=== PATIENT | female | born 1990 | race Caucasian/White ===

== ENCOUNTER 2021-09-09 16:55 | Inpatient (IN) | payer OTHER ==
[~2021-09-09] VITALS: Ht 152.4 cm; Wt 79.8 kg
[2021-09-09] MEDS ORDERED: SYNTHROID125 MCG PO (18:02)
[2021-09-09] MEDS ORDERED: PRENATAL CAPLE1 EAC1 PO (18:02)
== END 2021-09-12 18:39 | disposition home or self-care (01) | DRG 807 ==
LOC: LDR 16:55 → OB/GYN 09-11 14:38
PROVIDERS: ADMIT Obstetrics & Gynecology; ATTEND Obstetrics & Gynecology
PROC: 10E0XZZ Delivery of Products of Conception, External Approach (ICD-10-PCS; principal; 2021-09-10)
PROC: 4A1HXFZ Monitoring of Products of Conception, Cardiac Rhythm, External Approach (ICD-10-PCS; 2021-09-10)
DX: O80 Encounter for full-term uncomplicated delivery (principal); Z37.0 Single live birth; Z3A.40 40 weeks gestation of pregnancy